=== PATIENT | male | born 1975 | race Caucasian/White ===

== ENCOUNTER 2025-02-21 10:25 | Emergency (ER) | payer SELFPAY ==
--- NOTE | ~2025-02-21 | XR_ITS ---
EXAMINATION: XR elbow RT min 3V DATE: 02/21/2025 10:55 INDICATION: Medial right elbow pain post fall TECHNIQUE: Anteroposterior, two oblique and lateral views of the right elbow were obtained. COMPARISON: None. FINDINGS: Alignment is normal. No fracture. Small corticated enthesopathic ossicles at the medial and lateral e picondylar origins of the common flexor and extensor tendon wads respectively. 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 No joint effusion. Soft tissues are unremarkable. IMPRESSION: 1. No right elbow joint effusion or acute osseous abnormality. Reviewed, dictated and finalized at location A.
[2025-02-21 10:37] VITALS: BP 163/92; PULSE 98; RESP 16; TEMP 36; O2SAT 99
--- NOTE | 2025-02-21 11:07 | ED_ITS ---
HPI - Extremity Injury (Upper) General Chief Complaint: Extremity Injury, Upper Stated Complaint: Injured Right Arm Time Seen by Provider: 02/21/25 10:48 Source: patient Mode of arrival: ambulatory Limitations: no limitations History of Present Illness HPI narrative: Patient presents today complaining of right medial elbow pain x 1 day after tripping and falling on elbow. Currently rates his pain at 3/10 and has been smoking marijuana for pain relief. Denies numbness, tingling, or radiation. Related Data Allergies Allergy/AdvReac Type Severity Reaction Status Date / Time No Known Allergies Allergy Verified 02/21/25 10:54 Review of Systems Review of Systems: CONSTITUTIONAL: Denies body aches, fever, chillsEYES: Denies visual changes ENT: Denies rhinorrhea, congestion CARDIOVASCULAR: Denies chest pain, palpitations, or edema. RESPIRATORY: Denies cough or dyspnea. SKIN: Denies rash, itching, or wounds. MUSCULOSKELETAL: reports R elbow pain. NEUROLOGIC: Denies headache, numbness, tingling, or weakness. All systems reviewed & are unremarkable except as noted in HPI and below PMFSH Comments At time of signature, I have reviewed and agree with nursing past medical, surgical, social and family history unless otherwise noted. Please see nursing chart for further information. There is no relevant family history pertinent to the presenting complaint. Exam Narrative: MUSCULOSKELETAL EXAM GENERAL: Well-appearing, well-nourished, and in no acute distress. HEAD: Normocephalic, atraumatic. NECK: Supple. CHEST: Speaks in full sentences. No respiratory distress. HEART: Regular rate and rhythm. Normal and equal peripheral pulses. EXTREMITIES: Right arm has normal strength and sensation, normal range of motion with flexion/extension/rotation, but elicits pain with pronation and supination. Distal sensation intact. No edema or ecchymosis, point tenderness noted to medial elbow. No open wounds, skin tenting, or obvious deformity; alignment normal, radial pulse palpable and equal bilaterally, skin warm, dry, pink. Capillary refill less than 3 seconds. SKIN: Warm, dry, no rash. NEURO: Alert and oriented x3. PSYCH: Normal mood and affect Course Course Level of Care: Express Care Visit Vital Signs Vital signs: Vital Signs Oxygen Delivery Room Air 02/21/25 10:36 Temperature 96.8 F L 02/21/25 10:37 Pulse Rate 98 02/21/25 10:37 Respiratory Rate 16 02/21/25 10:37 Blood Pressure 163/92 H 02/21/25 10:37 Pulse Oximetry 99 02/21/25 10:37 Oxygen Delivery Room Air 02/21/25 10:36 reviewed MDM - Extremity Injury (Upper) MDM Narrative Medical decision making narrative: Discussed physical exam findings and xray. No fractures noted on XR. Carlos wrap offered to patient, but he declined. Advised supportive measures and signs/symptoms to go to the ER. Pt is appropriate for outpatient treatment and follow up. Differential Diagnosis Differential diagnosis: Likely other (osteoarthritis, elbow dislocation, septic bursitis, epicondylitis, biceps tendon rupture, tendonitis, fracture) Imaging Data Radiologist's impression: ITS Impressions Elbow X-Ray 02/21/25 10:56 IMPRESSION: 1. No right elbow joint effusion or acute osseous abnormality. Critical Care Time Critical Care Time Critical Care Time: No Discharge Plan Discharge Clinical Impression: Elbow sprain Qualifiers: Encounter type: initial encounter Laterality: right Qualified Code(s): S53.401A - Unspecified sprain of right elbow, initial encounter Patient Disposition: Home Condition: Stable Instructions: Elbow Sprain (ED) Additional Instructions: Rest. Avoid pushing, pulling, lifting or anything that worsens the symptoms. You may use an carlos wrap. Tylenol 1000mg every 8 hours as needed You can alternate with ibuprofen 600mg Alternate ice/heat to the site. Lidocaine or salon pas pain patch or use pain cream like icy/hot or biofreeze. Follow up with your primary care provider as needed in 1 week Go to the ER for worsening symptoms or concerns Your blood pressure was elevated above 120/80 today at Urgent Care. This puts you above the threshold for follow up. Please schedule a followup visit with your personal physician as soon as possible, for further evaluation and treatment. Even blood pressure exceeding 120/80 may indicate pre-hypertension. Patient Language: Ukrainian Follow-up/Referrals: PHYSICIAN,[facility] [Primary Care Provider] - Stand Alone Forms: Work/School Release IP
== END 2025-02-21 11:14 | disposition home or self-care (01) ==
DX: S53.401A Unspecified sprain of right elbow, initial encounter (principal); W01.0XXA Fall on same level from slipping, tripping and stumbling without subsequent striking against object, initial encounter
CPT/HCPCS: 73080; 99203; G0463